=== PATIENT | female | born 1945 | race Caucasian/White ===

== ENCOUNTER 2022-06-25 04:26 | Day surgery (SDC) | payer OTHER ==
[2022-06-25 09:26] VITALS: BMI 26.2
[2022-06-25 09:27] LABS: BASO % 0.3 % (0-2.0); EOS % 2.1 % (0-4.5); HEMATOCRIT 33.7 % (32.4-45.2); HEMOGLOBIN 11.7 GM/dL (10.7-15.3); LYMPH % 22.6 % (8-40); MCHC 34.5 g/dl (32.0-36.0); MEAN CELL VOLUME 86.9 fl (80-96); MEAN PLT VOLUME 7.6 fl (7.5-11.1); MONO % 5.6 % (3.8-10.2); NEUT % 69.4 % (42.8-82.8); PLATELET COUNT 294 10^3/uL (134-434); RBC 3.88 M/mm3 (3.60-5.2); RDW 14.6 % (11.6-15.6)
[2022-06-25 09:36] LABS: INR 1.02 (0.83-1.09); PROTHROMBIN TIME (PATIENT) 11.8 SEC (9.7-13.0)
[2022-06-25 15:26] VITALS: RESP 18
[2022-06-25 16:55] VITALS: BP 131/75; PULSE 89; TEMP 97.5
[2022-06-25 17:08] LABS: BF WBC & OTHER NUCLEATED CELLS 17 /mm3
[2022-06-25 17:17] LABS: BODY FLUID MACROPHAGES 14 %; BODY FLUID MONOCYTE 57 %
[2022-06-30 16:08] LABS: BODY FLUID ALBUMIN 0.5 g/dL (Not Estab.)
== END 2022-06-25 16:00 | disposition home or self-care (01) ==
LOC: JRADIR 04:26
PROVIDERS: ATTEND Urology
PROC: 0T9 Urinary System, Drainage (ICD-10-PCS; principal; 2022-06-25)
DX: N28.1 Cyst of kidney, acquired (principal)
CPT/HCPCS: 36415; 50390; 82042; 82150; 82465; 82945; 83615; 83986; 84157; 84478; 85025; 85610; 87070; 87075; 87102; 87116; 87205; 87206; 87210; 88173; 88305-TC